=== PATIENT | female | born 1985 | race Caucasian/White ===

== ENCOUNTER 2018-09-01 12:35 | Inpatient (IN) | payer OTHER ==
--- NOTE | 2018-09-01 13:20 | PDOC.FPROB ---
FMR OB H&P: HPI - History of Present Illness Chief Complaint: Contractions Indentification: History of Present Illness: 32 year old at 38.1 wks presents with contractions since 10 PM yesterday evening that are regularly spaced. She endorses bloody show, but denies LoF, vaginal discharge. Endorses positive movement. Denies cough, congestion, fever, chills. Primary Care Physician: Denis FMR OB H&P: Current - Care : 5 Para: [id number] Gestational age: 38.1 wks Dating Criteria: 09/14/2018 - OB Labs Blood type: A RH: positive Antibody Screen: negative HIV: negative RPR: negative HepBsAg: negative Rubella: immune Gonorrhea: negative Chlamydia: negative 1 hour gtt: 188 3 hour GTT: 92, 168, 68, 75 Additional labs: TSH 1.38 FMR OB H&P: History - OB History OB History: Hx of GDM in prior , diet controlled Hx of mastitis in prior - TURNER MACHINE History TURNER MACHINE History: History of abnormal Pap smear years ago; no treatment and every Pap smear since that time has been normal - Surgical History Sx History: Tonsillectomy - Social History Social History: Denies alcohol, tobacco, or drug use FMR OB H&P: Medications - Current Home Medications: Medication Instructions Recorded Confirmed Type Vitamin 1 tab PO DAILY #0 tab 05/17/16 09/01/18 Rx Allergies/Adverse Reactions: Allergies Allergy/AdvReac Type Severity Reaction Status Date / Time honey Allergy Intermediate Rash Verified 04/10/14 06:43 FMR OB H&P: ROS - Review of Systems General: denies: fever/chills, weight/appetite/sleep changes, fatigue Eyes: denies: vision changes, double vision, scotomas ENT: denies: nasal congestion, rhinorrhea, sore throat Cardiovascular: denies: chest pain, palpitation Respiratory: denies: cough, congestion, shortness of breath Gastrointestinal: denies: indigestion, bloating, nausea, vomiting, diarrhea, constipation Genitourinary (Female): reports: vaginal bleeding (bloody show), contractions. denies: dysuria, hematuria, polyuria, vaginal discharge, vaginal pain Neurologic: denies: syncope, seizures, weakness Integumentary: denies: rash, lesions Hematologic/Lymphatic: denies: prolonged or excessive bleeding Psychological: denies: depression, anxiety FMR OB H&P: Vital Signs - Maternal Vital signs: BP wnl Pulse 147 Temp 98.8 F - Heart Tones Baseline: 180 Variability: moderate Acceleration: present Deceleration: absent Category: category 2 [place] contractions every: q3 min FMR OB H&P: Physical Exam - Physical Exam General: NAD HEENT: MMM, normal nasal mucosa Heart: pulses present Deviation from normal: Tachycardia General: CTAB Abdomen: soft, gravid, non-tender Musculoskeletal: pulses present Skin: no rash, capillary refill <2 seconds Lymphatic: no unusual bruising or bleeding Psychiatric: intact recent and remote memory, good judgement and insight, normal mood and affect - Pelvic Exam Vulva: no lesions, no discharge SVE: 3.5//2 Presentation: Cephalic FMR OB H&P: A/P - Problem List (1) tachycardia Current Visit: Yes Status: Acute Code(s): WQU6276 - (2) Term Current Visit: Yes Status: Acute Code(s): Z34.80 - ENCOUNTER FOR SUPRVSN OF NORMAL , UNSP TRIMESTER Assessment and Plan: 32 year old at 38.1 wks presents with contractions tachycardia - NST shows FHR 180's with moderate variability - Will bolus with 1L LR and continue to monitor - Patient afebrile but also tachycardic - Does not appear to have any other signs or symptoms of infection Term sIUP - See plan as above Hx GDM in prior - Abnormal 1h GTT with nml 3H GTT Disposition: Stable. Will give fluids and monitor. Discussion: Date/Time: 09/01/18 1312 This H&P was discussed with Dr. Correa who agrees with the above documentation and plan. Signature: Laisha Gan DO PGY-2 Attending Addendum - Attending Addendum Date/Time: 09/01/18 760 I personally evaluated the patient and discussed the management with Dr. Mon. I agree with the History, Examination, Assessment and Plan documented above with any addition or exceptions noted below. Patient with unexplained tachycardia and abnormal EKG. Has had some mild shortness of breath this week. Will place on observation for further workup to include CBC, CMP, Mag, TSH, D-Dimer, Troponin, CXR. Will get Cardiology consult. Dr. Barrios notified.
[2018-09-01] MEDS ORDERED: Lactated Ringer's 1,000 ML IV SCH (13:30)
[2018-09-01 13:41] VITALS: BMI 38.5
--- NOTE | 2018-09-01 16:03 | PDOC.EVN ---
Event Note - Event Note Event Note: 09/01/2018 at 15:45 tachycardia has resolved. Category I strip. Reactive and reassuring. S/p 1L bolus of LR. Cervical check Allow patient to walk around and then put back on monitor to re-evaluate. Will repeat check in 1-2 hours. If patient has made change at that time, then will consider keeping her. If no cervical change and NST reactive and reassuring, then will consider d/c home with labor precautions. Laisha Gan, DO PGY-2
[2018-09-01] MEDS ORDERED: Promethazine HCl 25 MG/ML VIAL IM PRN ×2 (17:57→21:21)
[2018-09-01] MEDS ORDERED: Ondansetron PF 4 MG/2 ML Vial IVP PRN ×2 (17:57→21:21)
[2018-09-01] MEDS ORDERED: Acetaminophen 500 MG TAB PO PRN (17:57)
[2018-09-01 18:08] LABS: #Lymphocytes 1.9 thou/uL (1.20-3.40); #Monocytes 0.7 thou/uL (0.11-0.59); #Neutrophils 9.6 thou/uL (1.40-6.50); %Basophils 0.4 % (0.0-1.0); %Eosinophils 0.3 % (0.0-10.0); %Lymphocytes 15.5 % (21.0-51.0); %Neutrophils 77.9 % (42.0-75.0); Mean Corpuscular HGB CONC 33.9 g/dL (32.0-36.0); Mean Corpuscular Hemoglobin 29.5 pg (27.0-31.0); Mean Platelet Volume 6.5 fL (7.4-10.4); Platelet Count 308 thou/uL (130-400); RBC Distribution Width 11.8 % (11.5-14.5); Red Blood Cell (RBC) Count 4.07 mill/uL (4.20-5.40); White Blood Cell (WBC) Count 12.3 thou/uL (4.8-10.8)
--- NOTE | 2018-09-01 18:18 | RAD ---
AP VIEW CHEST: 09/01/18 HISTORY: Tachycardia. . AP view chest is obtained on 09/01/18. AP view chest demonstrates the lungs to be well aerated. No evidence of active intrathoracic disease seen. No evidence of effusions, pneumonia or pneumo thorax seen. IMPRESSION: Unremarkable AP view chest. POS: [facility]
[2018-09-01 18:32] LABS: ALT (SGPT) 16 U/L (8-55); AST (SGOT) 15 U/L (5-34); Albumin 3.4 g/dL (3.5-5.0); Alkaline Phosphatase 90 U/L (40-150); Anion Gap 15 mmol/L (10-20); BUN (Urea Nitrogen) 6 mg/dL (7.0-18.7); Bilirubin, Total 0.3 mg/dL (0.2-1.2); Calc. Creatinine Clearance 169 mL/min (70-130); Calcium 9.3 mg/dL (7.8-10.44); Carbon Dioxide 22 mmol/L (22-29); Chloride 103 mmol/L (98-107); Estimated GFR-MDRD Greater than 90; Globulin 3.5 g/dL (2.4-3.5); Glucose 86 mg/dL (70-105); Magnesium 1.6 mg/dL (1.6-2.6); Protein, Total 6.9 g/dL (6.0-8.3); Sodium 136 mmol/L (136-145)
[2018-09-01 18:35] LABS: Troponin I Less than 0.010 ng/mL (< 0.028)
[2018-09-01 18:45] LABS: Amphetamine Not Detected (NotDetected); Barbiturates Screen Not Detected (NotDetected); Benzodiazepine Screen Not Detected (NotDetected); Cocaine Metabolite Screen Not Detected (NotDetected); Medtox Control Line Valid? VALID (VALID); Medtox Reader # READER 1; Methadone Not Detected (NotDetected); Methamphetamine Not Detected (NotDetected); Opiate Screen Not Detected (NotDetected); Oxycodone Screen Not Detected (NotDetected); Phencyclidine (PCP) Not Detected (NotDetected); THC/Cannabinoid Screen Not Detected (NotDetected); Tricyclic Screen Not Detected (NotDetected)
[2018-09-01 18:53] LABS: HBSAg Index 0.24 S/CO (0-0.99); Hep B Surf Ag Non-Reactive S/CO (NonReactive)
[2018-09-01 18:54] LABS: Syphilis Antibody Nonreactive (Nonreactive); Syphilis Antibody Index 0.03 S/CO (<1.00 Non-Reactive)
--- NOTE | 2018-09-01 19:20 | PDOC.EVN ---
Event Note - Event Note Event Note: Patient went walking for appx 30 minutes after last check and upon return, maternal HR was in the 150's and HR was in the 200's. After several minutes, FHR came down to 180's and maternal HR came down to 130's. An EKG was ordered which showed RBBB with t wave inversions in leads V2-4. Patient without chest pain, palpitations, or shortness of breath. Labs ordered to include BNP, TSH, D-dimer, CBC, CMP, Mg. All were normal. D-dimer was slightly elevated, as would be expected in . UDS negative. No signs or symptoms of infection. Patient's PCP contacted. Decision was made to consult cardiology for further evaluation. Cardiology to order echocardiogram. Will obs patient on L&D with potential for IOL. Laisha Gan, DO PGY-2
[2018-09-01] MEDS ORDERED: Ibuprofen 800 MG TAB PO PRN (19:33)
[2018-09-01] MEDS ORDERED: NS / Oxytocin 40 units/1000ml 1,000 ML IV PRN (19:33)
[2018-09-01] MEDS ORDERED: Lidocaine 1% (PF) 30 ML VIAL SC PRN (19:33)
[2018-09-01] MEDS ORDERED: Fentanyl 4 mcg/Bup 0.1% Cadd 100 ML ONE (20:25)
[2018-09-01] MEDS ORDERED: Lactated Ringer's 500 ML IV PRN (21:21)
[2018-09-01] MEDS ORDERED: Eucerin (Mineral Oil/Petrolatum,White) 30 gm Jar TOP PRN (21:21)
[2018-09-01] MEDS ORDERED: Naloxone HCl 0.4 mg/ml Vial IVP PRN ×2 (21:21)
[2018-09-01] MEDS ORDERED: Acetaminophen 325 MG TAB PO PRN (21:21)
[2018-09-01] MEDS ORDERED: ePHEDrine/0.9% NaCl/PF SYRINGE 50 mg/10 ml SLOW IVP PRN (21:21)
[2018-09-01] MEDS ORDERED: diphenhydrAMINE 50 MG/ML VIAL IVP PRN (21:21)
[2018-09-01] MEDS ORDERED: Communication Order-Pharmacy FS SCH (21:30)
[2018-09-01] MEDS: Lactated Ringer's 1,000 ML IV SCH (21:30)
[2018-09-01] MEDS ORDERED: Fentanyl 4 mcg/Bupivacaine 0.1% Cassette 100 ML EPIDURAL SCH (21:30)
[2018-09-02] MEDS ORDERED: NS / Oxytocin 40 units/1000ml 1,000 ML ONE (01:29)
[2018-09-02] MEDS ORDERED: Lidocaine 1% (PF) 30 ML VIAL ONE (01:30)
[2018-09-02] MEDS ORDERED: Fentanyl 4 mcg/Bup 0.1% Cadd 100 ML ONE (01:37)
[2018-09-02] MEDS: NS / Oxytocin 40 units/1000ml 1,000 ML IV SCH ×2 (02:08→05:57)
[2018-09-02] MEDS ORDERED: Milk Of Magnesia 30 ML UDCUP PO PRN (05:23)
[2018-09-02] MEDS ORDERED: Benzocaine/Menthol 20-0.5% 60 ML CAN TOP PRN (05:23)
[2018-09-02] MEDS ORDERED: Lanolin Ointment 7 GM TUBE TOP PRN (05:23)
[2018-09-02] MEDS ORDERED: Bisacodyl 10 MG SUPP PR PRN (05:23)
[2018-09-02] MEDS ORDERED: HYDROcodone/Acetaminophen 5/325 mg Tablet PO PRN (05:23)
[2018-09-02] MEDS ORDERED: diphenhydrAMINE 50 MG/ML VIAL ONE (05:55)
--- NOTE | 2018-09-02 06:03 | OP ---
DELIVERY SUMMARY: DATE OF DELIVERY: 09/02/2018 PREOPERATIVE DIAGNOSES: Term intrauterine and maternal tachycardia. POSTOPERATIVE DIAGNOSES: Term intrauterine and maternal tachycardia. PROCEDURE PERFORMED: Normal spontaneous vaginal delivery. SURGEON: Araceli Barrios MD ANESTHESIA: Epidural. QBL: Please see the nurses' notes for QBL. SPECIMENS REMOVED: Include cord blood. BRIEF DELIVERY SUMMARY: This is a 32-year-old G5, now P5, who presented in active labor. Notably, w hen she first presented, she had a maternal heart rate in the 150s. This was worked up with labs, wh ich were all normal and an EKG which just showed sinus tachycardia. Cardiology was consulted while s he was in early labor and did a bedside echocardiogram which showed a normal ejection fraction and no sign of cardiomyopathy. She received epidural anesthesia which improved her heart rate somewhat, bu t the epidural stopped working and her heart rate jumped back up as soon as she was experiencing the pain of labor again. At delivery, maternal heart rate was approximately 115. She progressed to comp lete and pushing. She delivered a live male , head OA. Mouth and nares were bulb suctioned at the perineum. There was no nuchal cord. Shoulders and body easily followed, and the infant was ladan krupa on mother's abdomen. Apgars were 8 at 1 minute and 9 at 5 minutes. The umbilical cord wa s doubly clamped and cut, and cord blood was collected and sent for analysis. Placenta delivered spo ntaneously and intact with a 3-vessel cord. There were no lacerations. Mom and baby were left with the nurse in excellent condition. We will continue to observe maternal heart rate moving forward. I suspect that it will come down now that her pain is resolved.
[2018-09-02] MEDS: Lactated Ringer's 1,000 ML IV SCH (06:17)
[2018-09-02] MEDS: Docusate Calcium (SURFAK) 240 MG CAP PO SCH ×2 (08:40→21:24)
[2018-09-02] MEDS: Ibuprofen 800 MG TAB PO SCH ×3 (08:41→21:24)
[2018-09-02] MEDS: Ferrous Sulfate 325 MG TAB PO SCH ×2 (08:41→17:57)
[2018-09-02] MEDS: HYDROcodone/Acetaminophen 5/325 mg Tablet PO PRN ×3 (09:25→19:34)
--- NOTE | 2018-09-02 10:20 | CON ---
DATE OF CONSULTATION: 09/01/2018 REASON FOR CONSULTATION: Tachycardia. HISTORY OF PRESENT ILLNESS: Ms. Martin is a pleasant 32-year-old woman who is 38 weeks . Sh e is near Term. She recently presented with tachycardia. No significant symptoms present. No signi ficant lower extremity edema, shortness of breath, chest pain, pressure, or associated symptoms. Her TSH has been within normal limits. She initially was given fluids after her heart rate in the 140s. Her heart rate decrease in the 120s. ALLERGIES: None. PAST SURGICAL HISTORY: Tonsillectomy. SOCIAL HISTORY: No current tobacco or alcohol use. She is currently . This is her fifth chi ld. HOME MEDICATIONS: Include vitamins. REVIEW OF SYSTEMS: Ten-point review of systems reviewed and as above, otherwise negative. PHYSICAL EXAMINATION: GENERAL: Patient is a pleasant female who is in no acute distress. The patient appears his/her stat ed age. VITAL SIGNS: Blood pressure 125/80, pulse now is 108, temperature 98.8. NEUROLOGIC: The patient is alert and oriented times 3 with no focal neurologic deficits. HEENT: Sclerae without icterus. Mouth has moist mucous membranes with normal pallor. NECK: No JVD. Carotid upstroke brisk. No bruits bilaterally. LUNGS: Clear to auscultation with unlabored respirations. BACK: No scoliosis or kyphosis. CARDIAC: Tachycardic with normal S1 and S2. No S3 or S4 noted. No significant rubs, murmurs, thril ls, or gallops noted throughout the precordium. PMI is not displaced. There is no parasternal heave . ABDOMEN: Soft, nontender, nondistended. No peritoneal signs present. No hepatosplenomegaly. No ab normal striae. EXTREMITIES: 2+ femoral and 2+ dorsalis pedis pulses. No cyanosis, clubbing, or edema. SKIN: No gross abnormalities. PERTINENT LABORATORY DATA: Hemoglobin 12, creatinine 0.69, albumin 3.4. IMAGING: EKG shows sinus tachycardia. Stat echo with Doppler showed a normal LVEF, estimated at 55% -60%. She does appear somewhat underfilled, but likely within normal limits for . IMPRESSION: 1. Tachycardia. 2. Term . RECOMMENDATIONS: This is likely related to recent labor. Her TSH was within normal limits. Her hem oglobin was within normal limits. She did get fluids with improvement in her heart rate. Her overal l LVEF does appear normal and not consistent with peripartum cardiomyopathy. It would be okay from m y standpoint to proceed with delivery with close anesthesia observation.
--- NOTE | 2018-09-02 11:19 | PDOC.CTH ---
Cardiology Progress Note - Subjective No complaints. Doing well. Pulse rate 110-115bpm. - Objective Vital Signs Temp Pulse Resp BP Pulse Ox 09/02/18 10:37 98.7 F 113 H 16 123/60 95 09/02/18 08:15 98.9 F 111 H 16 118/63 98 09/02/18 07:30 99.3 F 110 H 17 116/64 93 L 09/02/18 06:15 99.4 F 126 H 18 135/66 96 Weight 204 lb 09/01/18 09/02/18 09/03/18 07:59 06:59 06:59 Output Total 400 Balance -400 - Physical Examination General/Neuro: alert & oriented x3 Neck: no JVD present Lungs: CTA Heart: other: (regular, tachy) Abdomen: NT/ND, soft Extremities: other: (no edema) - Telemetry Telemetry Rhythm: no tele - Labs Result Diagrams: 09/01/18 18:03 09/01/18 18:03 Troponin/CKMB Troponin I Less than 0.010 ng/mL (< 0.028) 09/01/18 18:03 - Assessment/Plan 1. Tachycardia 2. Term Pulse rate elevated during the time of contractions. Improved post-delivery. Patient reports chronic high heart rate. No changes to care. Continue hydration due to volume shift. Will see PRN.
--- NOTE | 2018-09-02 11:31 | PDOC.EVN ---
Event Note - Event Note Event Note: Pt still with elevated HR even several hours after delivery. Otherwise asymptomatic. No SOB. No lightheadedness. We discussed further work up and agreed to do the CT chest to rule out PE definitively. If that is normal then this may just be her response to . It is improved after delivery though not yet normal. BP is stable. O2 sat is 100% on room air.
[2018-09-02] MEDS ORDERED: Bupivacaine/Epinephrine 0.25% 30 ML VIAL ONE (13:04)
--- NOTE | 2018-09-02 14:21 | CT ---
CT ANGIO OF CHEST PERFOMRED WITH INTRAVENOUS CONTRAST ENHANCEMENT WITH 3D RECONSTRUCTIONS: HISTORY: Tachycardia. Abnormal D-dimer. FINDINGS: The lungs are clear of infiltrative process. Minimal subsegmental atelectatic change. There is some questionable slight nodularity to the thyroid gland. No significant mediastinal or hil ar adenopathy. Thoracic aorta is normal in caliber. There is fair pulmonary artery opacification. Peripheral emboli are not excluded, but I see no CT evidence for pulmonary embolus. There is air in the extradural space along the visualized portion of the thoracic spine. This was di scussed with Lennie, the patient's nurse, and states the patient had just recently had an epidural. IMPRESSION: 1. No CT evidence for pulmonary embolus 2. Evidence of air within the epidural space consistent with the patient's recent epidural. 3. Questionable small thyroid nodule is better investigated with ultrasound on an nonemergent basis. POS: [facility]
[2018-09-02] MEDS ORDERED: Iopamidol 370 76% 100 ML VIAL ONE (14:25)
[2018-09-03] MEDS: HYDROcodone/Acetaminophen 5/325 mg Tablet PO PRN ×3 (03:54→19:26)
[2018-09-03] MEDS: Ibuprofen 800 MG TAB PO SCH ×3 (06:15→21:36)
[2018-09-03] MEDS: Ferrous Sulfate 325 MG TAB PO SCH ×2 (08:13→14:55)
[2018-09-03] MEDS: Docusate Calcium (SURFAK) 240 MG CAP PO SCH ×2 (08:33→21:36)
[2018-09-04] MEDS: Ibuprofen 800 MG TAB PO SCH (05:48)
[2018-09-04] MEDS: Ferrous Sulfate 325 MG TAB PO SCH (07:40)
[2018-09-04] MEDS: Docusate Calcium (SURFAK) 240 MG CAP PO SCH (08:14)
[2018-09-04] MEDS: HYDROcodone/Acetaminophen 5/325 mg Tablet PO PRN (08:14)
[2018-09-04 08:51] VITALS: BP 121/70; TEMP 97.9
--- NOTE | 2018-09-04 10:21 | PDOC.PP ---
Post Progress Note Post Day #: Late entry - this note is for the encounter from 09/03/18 at 0745 Subjective: Feeling well. Bleeding minimal. Ambulating. PO intake tolerated: yes Flatus: yes Ambulation: yes Vital Signs (12 hours) Temp Pulse Resp BP Pulse Ox 09/04/18 08:49 97.9 F 81 20 121/70 99 Weight Weight 204 lb - Physical Examination General: NAD Cardiovascular: no m/r/g, RRR Respiratory: clear to auscultation bilaterally, non-labored breathing Abdominal: + bowel sounds, lochia, no distention, appropriately TTP Result Diagrams: 09/01/18 18:03 09/01/18 18:03 Additional Labs: Post Labs Blood Type A POSITIVE 09/01/18 13:35 Hep Bs Antigen Non-Reactive S/CO (NonReactive) 09/01/18 18:03 (1) Term Code(s): Z34.80 - ENCOUNTER FOR SUPRVSN OF NORMAL , UNSP TRIMESTER Status: Acute (2) Normal vaginal delivery Code(s): [id number] - Status: Acute - Assessment/Plan Doing well on PP day #1 CT negative for PE - tachycardia improving PP going well She would like to stay until 09/04 D/C tomorrow 09/04
--- NOTE | 2018-09-04 11:57 | PDOC.PP ---
Post Progress Note Post Day #: 2 Subjective: Doing well. tachycardia completely resolved now. Ready to go home. PO intake tolerated: yes Flatus: yes Ambulation: yes Vital Signs (12 hours) Temp Pulse Resp BP Pulse Ox 09/04/18 08:49 97.9 F 81 20 121/70 99 Weight Weight 204 lb - Physical Examination General: NAD Cardiovascular: no m/r/g, RRR Respiratory: clear to auscultation bilaterally, non-labored breathing Abdominal: + bowel sounds, lochia, no distention, appropriately TTP Result Diagrams: 09/01/18 18:03 09/01/18 18:03 Additional Labs: Post Labs Blood Type A POSITIVE 09/01/18 13:35 Hep Bs Antigen Non-Reactive S/CO (NonReactive) 09/01/18 18:03 (1) Term Code(s): Z34.80 - ENCOUNTER FOR SUPRVSN OF NORMAL , UNSP TRIMESTER Status: Acute (2) Normal vaginal delivery Code(s): [id number] - Status: Acute (3) Tachycardia Code(s): R00.0 - TACHYCARDIA, UNSPECIFIED Status: Resolved - Assessment/Plan Doing well. Ready for D/C today. F/U in 6 weeks. Tachycardia resolved - work up negative.
== END 2018-09-04 12:50 | disposition home or self-care (01) | DRG 807 ==
LOC: L&D/OP 12:35 → L&D 18:19 → OBSVTOIN 18:19 → 3SE 09-02 06:17
PROVIDERS: ADMIT Family Medicine; ATTEND Family Medicine
PROC: 10E0XZZ Delivery of Products of Conception, External Approach (ICD-10-PCS; principal; 2018-09-02)
DX: O99.42 Diseases of the circulatory system complicating childbirth (principal); Z37.0 Single live birth; R00.0 Tachycardia, unspecified; Z3A.38 38 weeks gestation of pregnancy
CPT/HCPCS: 36415; 51702; 71045; 71275; 80053; 80306; 83735; 83880; 84443; 84484; 85025; 85379; 86780; 86850; 86900; 86901; 87340; 93005; 93010; 93306; 99285; J1200; J2001

== ENCOUNTER 2019-02-28 09:02 | Outpatient (CLI) | payer OTHER ==
--- NOTE | 2019-02-28 10:39 | ULT ---
ULTRASOUND ABDOMEN COMPLETE: Date: 02/28/19 INDICATION: Pain, lower abdomen/pelvis. TECHNIQUE: Milner-scale ultrasound evaluation of the liver, gallbladder, spleen, pancreas, common bile duct, kidne ys, abdominal aorta, and inferior vena cava (IVC). FINDINGS: There is no evidence of focal hepatic lesion or acute gallbladder pathology. No ascites. Common duct is normal in caliber. No focal splenic abnormality. Kidneys reveal no evidence of hydronephrosis. Catherine ged abdominal aorta is normal in caliber. Portions of the pancreas are obscured from view by bowel co ntent which limits assessment. Guzman's sign reported as negative by medical insurance verifier. IMPRESSION: No acute intra-abdominal pathology is evident by sonographic evaluation. POS: [facility]
--- NOTE | 2019-02-28 11:13 | ULT ---
Pelvic ultrasound: 02/28/2019 COMPARISON: None HISTORY: Right lower quadrant pain TECHNIQUE: Multiplanar grayscale sonographic imaging of the pelvis obtained with transabdominal and e ndovaginal imaging. The ovaries are assessed with color flow and spectral analysis FINDINGS: The uterus is retroverted and measures 8.5 x 5.1 x 6.7 cm. The endometrium appears thickene d, a nonspecific finding, measuring up to approximately 1.6 cm, slightly above upper limits of normal of 1.5 cm for a premenopausal female. Left ovary measures 3.9 x 2.7 x 2.9 cm and right ovary measures 3.2 x 2.5 x 2.7 cm. There is blood fl ow documented within bilateral ovaries. There is a cyst within the left ovary measuring 2.4 x 1.9 x 2.0 cm. Follicles are noted within the le ft ovary as well. Right ovary demonstrates no mass. IMPRESSION: Mildly thickened endometrium. Left ovarian cyst measuring up to 2.4 cm.
== END 2019-02-28 09:03 | disposition home or self-care (01) ==
LOC: SCSULT 09:02
PROVIDERS: ATTEND Family Medicine
DX: R10.31 Right lower quadrant pain (principal); N83.202 Unspecified ovarian cyst, left side; R93.89 Abnormal findings on diagnostic imaging of other specified body structures
CPT/HCPCS: 76700; 76856

== ENCOUNTER 2019-03-21 08:07 | Outpatient (CLI) | payer OTHER ==
--- NOTE | 2019-03-21 08:53 | CT ---
CT ABDOMEN AND PELVIS WITH IV CONTRAST: DATE: 03/21/2019. PROVIDED CLINICAL HISTORY: Chronic right lower quadrant pain. FINDINGS: The visualized lung bases are free of significant [id number]. The solid abdominal organs demonstrate an unremarkable CT appearance. There is no bowel dilatation, inflammatory fat stranding, free fluid, or lymph node enlargement appar ent. The appendix appears normal. The regional major vascular structures appear normal. There is questio angelita mural thickening involving the distal sigmoid colon. This could also be on the basis of under di stention. The osseous structures demonstrate no concerning lytic or blastic lesions. Small fat-containing umbi lical hernia. IMPRESSION: Question mural thickening involving the distal sigmoid colon versus under distension. Correlate with concerns for colitis. POS: [facility]
== END 2019-03-21 08:08 | disposition home or self-care (01) ==
LOC: CT 08:07
PROVIDERS: ATTEND Family Medicine
DX: R10.31 Right lower quadrant pain (principal)
CPT/HCPCS: 74177

== ENCOUNTER 2023-11-22 10:56 | Outpatient (CLI) | payer OTHER | END 2023-11-22 10:57 | disposition home or self-care (01) | LOC: BICMRI 10:56 | PROVIDERS: ATTEND Orthopaedic Surgery | DX: M25.521 Pain in right elbow (principal) ==